=== PATIENT | female | born 1980 | race African-American/Black ===

== ENCOUNTER 2024-07-14 03:46 | Emergency (ER) | payer MEDICAID ==
[2024-07-14 04:06] VITALS: PULSE 109; O2SAT 99
== END 2024-07-14 04:15 | disposition left against medical advice (07) ==
LOC: ER 03:46
DX: M79.669 Pain in unspecified lower leg (principal); Z53.21 Procedure and treatment not carried out due to patient leaving prior to being seen by health care provider

== ENCOUNTER 2024-11-28 03:10 | Emergency (ER) | payer MEDICAID ==
[~2024-11-28] VITALS: Ht 152.4 cm; Wt 51.5 kg
[2024-11-28 03:15] VITALS: TEMP 36.6; O2SAT 99
[2024-11-28 03:16] VITALS: O2SAT 99
[2024-11-28 03:53] VITALS: BP 134/71; PULSE 100; RESP 14
[2024-11-28] MEDS: KETOROLAC 15MG/ML VIAL IM ONE (03:53)
[2024-11-28] MEDS: DIPHENHYDRAMINE 25MG CAPSULE PO ONE (03:54)
[2024-11-28] MEDS: METOCLOPRAMIDE HCL 10MG TABLET PO ONE (03:54)
== END 2024-11-28 05:24 | disposition left against medical advice (07) ==
LOC: ER 03:10
DX: G43.909 Migraine, unspecified, not intractable, without status migrainosus (principal)
CPT/HCPCS: 99283; 96372; J1885; Q0163; J8597